=== PATIENT | female | born 1955 | race Caucasian/White ===

== ENCOUNTER 2016-03-29 07:48 | Day surgery (SDC) | payer BC ==
[~2016-03-29] VITALS: Ht 167.6 cm; Wt 83.5 kg
[~2016-03-29 07:48] MED LIST: ASPIR-LOW81 MG PO; LEVOTHYROXINE112 MCG PO
[2016-03-29 09:30] LABS: HEMATOCRIT 42.7 % (36.0-46.0); MCHC 32.6 G/DL (30.0-36.0); MEAN PLAT.VOLUME 11.5 uM^3 (9.5-12.4); PLATELET COUNT 163 K/uL (156-360); RBC DIS.WIDTH-CV 12.8 % (11.8-14.6); RED BLOOD COUNT 4.64 M/uL (3.80-5.20); WHITE BLOOD COUNT 4.2 K/uL (4.1-10.2)
[2016-03-29 09:44] LABS: ANION GAP 6 MEQ/L (2-14); CHLORIDE 103 MEQ/L (99-109); POTASSIUM 3.8 MEQ/L (3.7-5.4); SAMPLE HEMOLYSIS CHECK 0; SAMPLE ICTERIC CHECK 0; SAMPLE LIPEMIA CHECK 0; SODIUM 140 MEQ/L (136-147)
[2016-03-29 09:49] LABS: GFR ESTIMATE (CALCULATED) > 59 mL/min/; GLUCOSE 96 mg/dL (70-99); UREA NITROGEN (BUN) 17 mg/dL (9-23)
== END 2016-03-29 16:00 | disposition home or self-care (01) ==
LOC: CATH 07:48
PROVIDERS: Internal Medicine Cardiovascular Disease
DX: R94.39 Abnormal result of other cardiovascular function study (principal); R07.89 Other chest pain; R94.31 Abnormal electrocardiogram [ECG] [EKG]; E78.5 Hyperlipidemia, unspecified; I45.4 Nonspecific intraventricular block
CPT/HCPCS: 80048; 85027; 93005; C1769; C1887; J1644; J2250; J3010; J7050